=== PATIENT | male | born 1950 | race Caucasian/White ===

== ENCOUNTER 2021-10-23 05:08 | Observation (INO) ==
--- NOTE | 2021-10-09 13:16 | PAT Medication Instructions ---
Medication Instructions Date of Service October 09, 2021 Home Medications acetaminophen 500 mg tablet 500 mg PO Q6H PRN celecoxib 200 mg capsule (Celebrex) 200 mg PO QAM ASK your surgeon for instructions celecoxib 200 mg capsule (Celebrex) 200 mg PO QAM Take morning of surgery With a small sip of water, OTHERWISE NOTHING TO EAT OR DRINK AFTER MIDNIGHT: acetaminophen 500 mg tablet 500 mg PO Q6H PRN(okay to take up to 4 hours prior to surgery if needed) Take evening before surgery acetaminophen 500 mg tablet 500 mg PO Q6H PRN(if needed) Other Notes If you have any questions please call us at [phone] or [phone] or [phone] or [phone]
--- NOTE | 2021-10-14 11:40 | Anesthesiology Consultation ---
Date of Service October 14, 2021 Assessment & Plan (1) Encounter for pre-operative examination: - medical clearance 03/13/2021: "...has had numerous procedures with anesthesia, never any complications...proposed procedure of knee arthroplasty, along with appropriate anesthesia, would not pose above-average risk. No further investigation is warranted in my opinion...cleared for procedure..." - COVID screening: Per assessment on 10/14/2021: Travel screen negative, no known COVID-19 positive contacts or current COVID-19 related symptoms in past 2 weeks. Patient vaccinated. Surgeon arranging preop COVID testing, scheduled 10/21/2021. Awaiting results. Chart Review Chart Review: Acceptable Risk for Surgery and Patient seen in Pre Admission Testing Teaching & Discussion Pre-Anesthesia Teaching/Discussion Notes: Instructed NPO after midnight before surgery, except medications with 15 cc of water. Medication instructions provided according to the PAT guidelines. History Surgery Operation Date: 10/23/21 07:00 Proposed Procedures p Right Total Knee Arthroplasty - Burt Chamorro MD Height/Weight Height: 5 ft 8 in Weight: 76.1 kg Allergies Allergy/AdvReac Type Severity Reaction Status Date / Time tree and shrub pollen Allergy allergic Verified 10/14/21 11:55 rhinitis Medications Home Medications Medication Instructions Recorded Confirmed Last Taken acetaminophen 500 mg tablet 500 mg PO Q6H PRN 02/26/21 10/08/21 Unknown celecoxib 200 mg capsule (Celebrex) 200 mg PO QAM 02/26/21 10/08/21 Unknown Past Medical History Medical History (Updated 10/14/21 @ 11:55 by Kimber Guzman PA-C) Chronic obstructive pulmonary disease Mild - breathing stable and controlled, denies inhaler use High triglycerides Borderline CARTER (obstructive sleep apnea) Cannot tolerate device Osteoarthritis Polio Patient denies h/o stroke, seizures, heart attack, heart failure, DM, HTN, blood clots or blood transfusions. Exercise / Class Metabolic Activity II 4-5 Yardwork/Stairs/Walk up hill (denies CP or SOB with 1 FOS) Past Family History Family History Other Diabetes Heart disease Stroke Past Surgical History Surgical History History of foot surgery due to polio History of open reduction and internal fixation (ORIF) procedure left femur History of oral surgery 1984 jaw surgery pins due to farm accident No issues opening or closing mouth Hx of right knee surgery due to polio as child Hx of rotator cuff surgery right and left Past Anesthesia History No Hx of Anesthesia Complications and No Family Hx of Anesthesia Complications History of PONV No Hx of PONV and No Hx of Motion Sickness Social History Smoking Status: Never smoker Do You Dip or Chew Tobacco: Yes (advised) Hx Alcohol Use: Yes Alcohol type: beer alcohol intake frequency: a few times a month Hx Substance Use: No substance use type: does not use Review of Systems Patient denies chest pain, shortness of breath, dyspnea on exertion, fever, chills, cough, wheezing, or palpitations. Physical Exam Vital Signs Vitals BP 139/88 P 60 TEMP 98.1 SP02 95% on RA RESP 17 Physical Full cervical extension range of motion without pain TMD 3.5 finger breaths Mallampati Score 2, slightly limited mouth opening Dentition: intact, several missing teeth, repaired chipped front upper tooth; denies loose teeth, caps/crowns, implants or bridges Lungs: normal respiratory effort. Clear throughout to auscultation, no adventitious breath sounds Cardiac: regular rate and rhythm, no murmurs noted Carotid arteries: negative bruit bilat Lab Results Anesthesia Preop Results Results Anesthesia Widget: WBC 9.06 K/uL (4.8-10.8) 10/14/21 Hgb 15.7 g/dL (14.0-18.0) 10/14/21 Hct 45.7 % (42-52) 10/14/21 Plt 206 K/uL (130-400) 10/14/21 Na 137 mmol/L (136-145) 10/14/21 K 4.3 mmol/L (3.5-5.1) 10/14/21 Cl 106 mmol/L (98-107) 10/14/21 CO2 25 mmol/L (21-32) 10/14/21 BUN 22 mg/dl (6-23) 10/14/21 Creat 0.85 mg/dl (0.6-1.4) 10/14/21 Glucose Level 96 mg/dl (70-99(Fasting)) 10/14/21 PT 11.3 Seconds (9.0-12.0) 10/14/21 PTT 27.5 Seconds (21.0-31.0) 10/14/21 INR 1.1 (0.9-1.1) 10/14/21 Urine Color Yellow 10/14/21 Urine Appearance Clear (Clear) 10/14/21 Urine pH 5.0 (4.5-7.5) 10/14/21 Urine Specific [place] 1.017 (1.000-1.030) 10/14/21 Urine Protein Negative (Negative) 10/14/21 Urine Glucose (UA) Negative (Negative) 10/14/21 Urine Ketones Negative (Negative) 10/14/21 Urine Blood Negative (Negative) 10/14/21 Urine Nitrite Negative (Negative) 10/14/21 Urine Bilirubin Negative (Negative) 10/14/21 Urine Urobilinogen Negative (Negative) 10/14/21 Urine Leukocyte Esterase Negative (Negative) 10/14/21 Blood Type B Positive 10/14/21 Antibody Screen NEGATIVE 10/14/21 Testing Electrocardiogram Date: 03/07/21 Sinus bradycardia with occasional PVCs, rate 58 bpm Chest X-Ray Date: 03/07/21 FINDINGS: PA and lateral chest radiographs are obtained. No prior studies are available for comparison at the time of dictation. The cardiomediastinal yakov houette is unremarkable. The lungs appear hyperinflated. Nonspecific interstitial thickening is likely chronic. No airspace consolidation or pleural effusion is identified. Mild scarring/atelectasis is noted at the lung bases. There is no pneumothorax. The skeletal structures are osteopenic. The bony thorax appears intact. Postoperative change is noted in the left shoulder. IMPRESSION: No active disease in the chest.
--- NOTE | 2021-10-19 07:57 | History & Physical Report ---
Date of Service October 19, 2021 Assessment & Plan (1) Right knee DJD: Plan: Postoperative prescriptions for Percocet and Coumadin will be provided at discharge from the hospital. Anticipate discharge to home with home health services. For preoperative lab work, EKG and chest x-ray were ordered. He will see PAT today. Preoperative COVID nasal swab was also ordered today. He is aware of the COVID-19 risks associated with surgery. He is currently asymptomatic of any COVID-19 symptoms. PDMP was checked and there are no concerning findings. He already has a walker. Given his requirements on the left leg, bilateral platform attachments were ordered. Option of using a knee immobilizer on the right or left legs for ambulation was also discussed. He does have a brace at home. Call with any other concerns. He also met with telephonic case manager, nurse Mosqueda, to make arrangements for home health and PT. History of Present Illness Chief Complaint: Right knee pain Primary Care Provider: Bebe Tamez MD This 71-year-old male presents with his for his preoperative history and physical. He is scheduled to undergo a right knee total knee arthroplasty on 10/23/2021. He was previously scheduled for this same procedure on 04/03/2021. This was canceled due to the COVID pandemic and lack of bed space. He has had a longstanding history of right knee pain. He was inflicted with polio as a young child and has significant wasting and dysfunction of his left leg. Because of the leg length inequality, he had multiple right knee surgeries including epiphyseal stapling to try and control leg growth. At this point, he has end- stage arthritic changes in the right knee. Pain is worse with weightbearing. It is affecting his ADLs. He has a significant valgus deformity that causes him to walk abnormally. 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 He has no active quad function on the left. He uses his left arm to push his knee into extension and control it from buckling. No numbness or tingling. He elects to proceed with surgical intervention in hopes of improving his function and pain control. Preoperative imaging has been obtained. Allergies Allergy/AdvReac Type Severity Reaction Status Date / Time tree and shrub pollen Allergy allergic Verified 10/14/21 11:55 rhinitis Home Medications Medication Instructions Recorded Confirmed Type acetaminophen 500 mg tablet 500 mg PO Q6H PRN 02/26/21 10/08/21 History celecoxib 200 mg capsule (Celebrex) 200 mg PO QAM 02/26/21 10/08/21 History Past Med/Surg History Medical History (Updated 10/19/21 @ 07:54 by Perry Lynn PA-C) Chronic obstructive pulmonary disease Mild - breathing stable and controlled, denies inhaler use GERD (gastroesophageal reflux disease) High triglycerides Borderline CARTER (obstructive sleep apnea) Cannot tolerate device Osteoarthritis Polio Surgical History History of foot surgery due to polio History of open reduction and internal fixation (ORIF) procedure left femur History of oral surgery 1984 jaw surgery pins due to farm accident No issues opening or closing mouth Hx of right knee surgery due to polio as child Hx of rotator cuff surgery right and left Family History (Updated 10/19/21 @ 07:54 by Perry Lynn PA-C) Brother Deep vein thrombosis Other Diabetes Heart disease Stroke Social History (Updated 10/19/21 @ 07:53 by Perry Lynn PA-C) Smoking Status: Never smoker Tobacco Type: Smokeless Tobacco (Dip or Chew) Second Hand Exposure: No; Hx Alcohol Use: Yes Alcohol type: beer Hx Substance Use: No Preferred Language: Wolof Communication Ability: Effective Athletic Field Custodian Required: No Beliefs That Will Affect Care: None marital status: Current Living Situation: Spouse current occupational status: employed current occupation: arreola/golf course Feels Safe at Home: Yes Assistive Devices: Glasses Review of Systems Review of Systems: All systems reviewed & are unremarkable except as noted in HPI & below A total of 10 systems were reviewed. Physical Exam Physical Exam: Vitals: Height 172.7 cm, weight 75.5 kg, BMI 25.3, temperature 36.5, BP 120/74, respirations 16, O2 sat 96% on room air. General: Well-developed, well-nourished, elderly white male in no acute distress. Sitting in a chair. Alert and oriented. Skin: Warm and dry with good turgor. No rashes or lesions. No ecchymosis or erythema. HEENT: Normocephalic, atraumatic. Eyes: PERRLA, EOMI. Oropharynx and nares exam deferred due to COVID precautions. Heart: RRR. No MGR. Lungs: Clear to auscultation bilaterally. No crackles, rhonchi or wheezing. Good air movement. Abdomen: Bowel sounds present x4, soft and nontender. No organomegaly. No masses. Musculoskeletal: Right knee evaluation reveals an obvious valgus deformity. No intra-articular effusion today. There is thickening around the knee. No defect in the patellar tendon or quadriceps tendon. There is focal pain with palpation over the lateral joint line. There is also peripatellar discomfort. No medial joint line discomfort with palpation today. Stable collateral ligaments. He lacks a few degrees of terminal extension. Flexion to 100 degrees. Strength is 5/5 with fair quad tone. He has no active quad function on the left leg. He ambulates with an antalgic gait, requiring pressure on the left thigh to extend the left knee. Neurologic: Gross sensation is intact across all aspects of the right leg by soft touch. Peripheral pulses are 2+. There is some decreased subjective sensation on the lower left leg as his baseline. Results & Data Results & Data ([facility]) Diagnostic Findings Radiographic imaging obtained today shows end-stage DJD of the right knee. He has [id number] in the lateral compartment. There is a large loose body or osteophyte present posteriorly. Severe valgus deformity of the right knee. Code Status & VTE Plan VTE Prophylaxis Plan VTE Prophylaxis will be ordered: Yes
[2021-10-23] MEDS ORDERED: ceFAZolin 2000MG 2,000 MG/15 ML SYR IV SCH (06:00)
[2021-10-23] MEDS ORDERED: ROPIVACAINE 0.5% HCL/PF 150 MG, BUPIVACAINE 0.75% MPF 20 ML, EPINEPHrine 0.15 MG, Ketor... INFIL SCH (06:00)
[2021-10-23] MEDS ORDERED: LR 60ML/HR IV SCH (06:00)
[2021-10-23] MEDS ORDERED: TRANEXAMIC ACID 1,000 MG **IV Pre-op IV SCH (06:00)
[2021-10-23] MEDS ORDERED: LR 500ML BOLUS, THEN 15ML/HR IV SCH (06:00)
--- NOTE | 2021-10-23 06:25 | History & Physical Bridge Note ---
Date of Service October 23, 2021 History & Physical Bridge Note I have examined the patient, reviewed the History & Physical and in the interval since the performance of the History & Physical I have noted the following changes of clinical significance:consent obtained/site verified/covid screen negative.old medial incision will be used to minimize risk of skin issues.made him aware of that risk. no changes noted
[2021-10-23] MEDS ORDERED: BUPIVACAINE 0.5 % 5 MG/1 ML PF 10ML VIAL ONE ×2 (06:28)
[2021-10-23] MEDS ORDERED: ORTHO JOINT ANESTHETIC ONE (06:32)
[2021-10-23] MEDS ORDERED: PROPOFOL IV EMULSION 10 MG/ML 20 ML VIAL IV ONE ×3 (06:36→08:15)
[2021-10-23] MEDS ORDERED: MIDAZOLAM HCL 1 MG/ML 2ML VIAL ONE (06:36)
[2021-10-23] MEDS ORDERED: fentaNYL citrate 100 MCG/2 ML VIAL ONE (06:36)
[2021-10-23] MEDS ORDERED: LIDOCAINE 2% 2 ML VIAL/AMP(20MG/ML) INFIL ONE (06:36)
[2021-10-23] MEDS ORDERED: DEXAMETHASONE SOD INJ 4 MG/ML VIAL ONE (06:36)
[2021-10-23] MEDS ORDERED: HYDROmorphone INJ 2 MG/ML SYR/VIAL IV PRN (06:48)
[2021-10-23] MEDS ORDERED: fentaNYL citrate 100 MCG/2 ML VIAL IV PRN (06:48)
[2021-10-23] MEDS ORDERED: ePHEDrine sulfate 50 MG/ML AMP IV PRN (06:48)
[2021-10-23] MEDS ORDERED: ATROPINE SULFATE 0.1 MG/ML 10ML SYR IV PRN (06:48)
[2021-10-23] MEDS ORDERED: ONDANSETRON INJ 2 MG/ML 2 ML VIAL IV PRN ×2 (06:48→10:40)
[2021-10-23] MEDS ORDERED: KETAMINE 50 MG/5 ML SYRINGE ONE (07:21)
--- NOTE | 2021-10-23 08:48 | Post Operative Brief Note ---
Immediate Post Op Note v1 Date of Surgery October 23, 2021 Pre & Post Diagnosis Operation Date: 10/23/21 07:00 Pre-Op Diagnosis: Right Knee Degenerative Joint Disease Post-Op Diagnosis: Right Knee Degenerative Joint Disease I identified the patient and participated in the time-out.: Yes Procedure Operation Date: 10/23/21 07:00 Actual Procedures p Right Total Knee Arthroplasty(Right) - Burt Chamorro MD Surgeon Burt Chamorro MD Loom Starter Meeta/Leah/Merlin Estimated Blood Loss 25 Findings Consistent with Post-Op Diagnosis
--- NOTE | 2021-10-23 09:00 | Operative Report ---
Post Operative Report Pre & Post Diagnosis Operation Date: 10/23/21 07:00 Pre-Op Diagnosis: Right Knee Degenerative Joint Disease Post-Op Diagnosis: Right Knee Degenerative Joint Disease I identified the patient and participated in the time-out.: Yes Procedure Operation Date: 10/23/21 07:00 Actual Procedures p Right Total Knee Arthroplasty(Right) - Burt Chamorro MD Surgeon DANICA Chamorro MD Line Supply Meeta/Leah/Merlin Estimated Blood Loss 25 Findings Consistent with Post-Op Diagnosis see operative report Specimens see operative report Drains none Complications none Disposition Accompanied Patient To Recovery: Yes Indications This 71-year-old male presented to the office with complaints of persisting right knee pain. He had tried conservative care measures without improvement. He elected to proceed with surgical intervention after being educated about potential risks and outcomes. Preoperative imaging was obtained. Surgery was initially delayed due to bed availability in the hospital due to the Covid surge. He is now ready to proceed. Description of Procedure Patient was administered a spinal anesthetic and then taken to the operating room where he was given sedation. He was prepped and draped in the usual sterile fashion. Please see Dr. Chamorro's operative report for specifics of the procedure. I was present for the entire case from initial patient positioning through final wound closure. Assistance was provided in tissue retraction, hemostasis, trial implant placement, final implant placement, and final wound closure. Patient was taken to the recovery room in satisfactory condition. I attest to the content of the Intraoperative Record and any orders documented therein. Any exceptions are noted below.
--- NOTE | 2021-10-23 09:01 | Operative Report ---
Post Operative Report Pre & Post Diagnosis Operation Date: 10/23/21 07:00 Pre-Op Diagnosis: Right Knee Degenerative Joint Disease Post-Op Diagnosis: Right Knee Degenerative Joint Disease I identified the patient and participated in the time-out.: Yes Procedure Operation Date: 10/23/21 07:00 Actual Procedures p Right Total Knee Arthroplasty(Right) - Burt Chamorro MD Surgeon Colt Tim MD Manager Trade Metea/Leah/Merlin Estimated Blood Loss 25 Findings Consistent with Post-Op Diagnosis Consistent with post diagnosis. Specimens No specimens Description of Procedure I participated in prepping dressing and assisted Dr. Chamorro during the procedure. Please see Dr. Chamorro note. I attest to the content of the Intraoperative Record and any orders documented therein. Any exceptions are noted below. Supervising Physician Co-Signing Physician Notes Dr. Chamorro
--- NOTE | 2021-10-23 09:27 | XRay Report ---
XR knee RT 1 or 2V routine CLINICAL HISTORY: S/P R TKA. COMPARISON STUDY: 10/14/2021 TECHNIQUE: 2 right knee views FINDINGS: The patient is status post total knee replacement. The prosthetic components are in anatomi c alignment with no acute abnormality seen. Air is present within the soft tissues from the procedure . Skin mayelin are seen anteriorly. IMPRESSION: 1. Status post total knee replacement ACT 112: Negative or not required by law. Electronically signed by: Alexis Forde M.D. 10/23/2021 9:26 AM
--- NOTE | 2021-10-23 09:42 | Anesthesiology Progress Note ---
Date of Service October 23, 2021 Anesthesia Post Procedure Vital Signs Vital Signs: Temp Pulse Resp BP Pulse Ox 10/23/21 09:40 54 L 16 129/88 96 10/23/21 09:30 52 L 15 140/98 99 10/23/21 09:20 56 L 13 143/63 H 99 10/23/21 09:10 52 L 17 140/94 99 10/23/21 09:00 36.3 C L 59 L 14 129/89 97 10/23/21 05:56 36.8 C 55 L 18 145/85 H 96 Transfer of Care Handoff Completed per policy Notes Mental Status: alert / awake / arousable and participated in evaluation Patient Amnestic to Procedure: Yes Nausea / Vomiting: adequately controlled Pain: adequately controlled Airway Patency, RR, SpO2: stable & adequate BP & HR: stable & adequate Hydration State: stable & adequate Anesthetic Complications: no major complications apparent and Pt Satisfied with anesthetic care
--- NOTE | 2021-10-23 09:42 | Progress Notes ---
DATE OF SERVICE: 10/23/2021. SUBJECTIVE: Postop check status post right total knee replacement. The patient is resting comfortably in bed. Denies chest pain, shortness of breath, fever, chills, nausea, vomiting, or headache. OBJECTIVE: VITAL SIGNS: Stable. He is afebrile. Neurovascular check is limited by spinal. Wound dressing clean, dry and intact. X-rays look excellent. ASSESSMENT: Doing well status post right total knee replacement. Continue with care pathway. Job ID: [id number] [facility]
--- NOTE | 2021-10-23 09:45 | Operative Report (OR) ---
DATE OF PROCEDURE: 10/23/2021 SURGEON: Burt Chamorro MD. FISHING TOOL TECHNICIAN OIL WELL: Colt Tim MD. SECOND FISHING TOOL TECHNICIAN OIL WELL: Perry Lynn PA-C and med student Kaleb. PREOPERATIVE DIAGNOSIS: Osteoarthritis, tricompartmental with valgus deformity, flexion contracture post-polio, right knee. POSTOPERATIVE DIAGNOSIS: Osteoarthritis, tricompartmental with valgus deformity, flexion contracture post-polio, right knee. OPERATION PERFORMED: Cemented right total knee replacement. SUMMARY OF IMPLANTS: Size right 4 femur posterior cruciate substituting, size 4 mobile bearing tray, size 41 patella, size 4 x 10 posterior cruciate substituting insert, oval dome 3-peg patella, size 41, two bags of Palacos G cement J and J implants. CRYSTALLOID: Per anesthesia. ESTIMATED BLOOD LOSS: 25 mL post-tourniquet release. PERIOPERATIVE SITUATION: Medically cleared male with intractable knee pain, has deformity based on multiple procedures secondary to polio when he was a child and has significant valgus and flexion deformity, wished to proceed with surgical treatment. Options were discussed with him in detail. He has multiple incisions about the knee. Informed him of skin slough, we will use his medial incisions slightly extended, also informed of potential peroneal nerve palsy based on tension and stretch. DESCRIPTION OF PROCEDURE: The patient was appropriately identified, site verified, consent verified. Antibiotics were confirmed as being given. The right lower extremity was prepped and draped in the usual routine fashion. Tourniquet was inflated to 300 mmHg after exsanguination of the limb with a rubber Esmarch bandage for a total of 63 minutes. An old medial incision was utilized and extended proximally and distally about 3 cm in each direction. Full thickness flaps were raised. Minimal dissection was carried over the patella. Parapatellar trialing was performed. One could see that the extensor mechanism was not deformed as normally would be. It was very thin medially and proximally. Once the parapatellar arthrotomy was performed, one could see the extensive osteophytes, synovitis and degenerative disease, particularly in the lateral compartment and the patellofemoral compartment. All osteophytes were resected. Synovectomy completed. Patella was appropriately released. The knee flexed without difficulty. Excellent exposure obtained. Distal femur then entered. Cruciates resected. Tibia was subluxated, menisci resected. Significant grade 4 deformity on the tibia with a significant bone loss there. The retractors were then placed well. The distal femoral cut was then made 14 mm, the proximal tibia cut then made 4 mm off the high side. This required one revision. The extension gap was excellent. The flexion gap was excellent. Both were sized to size 4. The femur was actually between a 5 and 4, was measured 5, cut 4 with care taken to externally rotate the implant appropriately based on potential deformity from his polio. This was done well and the transepicondylar axis was reproduced. Anterior, posterior condylar and chamfer cuts then made. The flexion gap and extension gap again were excellent. The box cut was then made and a size 4 fit well. Tibia was then subluxated, broached and reamed to a size 4. Care was taken to make sure the posterior slope was appropriate. The 10 spacer fit well. The patella tracked well. The patella was quite large. It was resected, leaving about 16-17 mm and then the 41 patella button placed. It tracked well. Orthomix was then injected all about the knee including posterior capsule. Implants were removed. The wound irrigated with Betadine Pulsavac, the permanent cemented in position -- tibia, femur, and patella in that order. At 12 minutes, the tourniquet deflated; at 14 minutes, the knee flexed. Minor cement removal required. The wound irrigated. The temporary spacer removed, the wound irrigated one final time with Betadine and the permanent spacer seated. The knee reduced and then closed at 40 degrees of flexion with #2 Vicryl, 2-0 Vicryl and stainless steel clips. Appropriate dressing applied. The patient was transferred to recovery room in satisfactory condition, having tolerated the procedure well. Job ID: [id number] [facility]
--- NOTE | 2021-10-23 09:49 | Discharge Summary (DS) ---
DATE OF ADMISSION: 10/23/2021. DATE OF SURGERY: 10/24/2021. CHIEF COMPLAINT: Right knee pain. HISTORY OF PRESENT ILLNESS: The patient underwent elective right total knee replacement for postpoli o deformity, tricompartmental osteoarthritis with valgus and flexion deformity of his right knee. Hospital course to date has been uneventful. He denies any chest pain, shortness of breath, fever, c hills, nausea, vomiting or headache. ALLERGIES: INCLUDE TREE AND TRUNK POLLEN. HOME MEDICATIONS: Include acetaminophen and Celebrex. PAST MEDICAL/PAST SURGICAL HISTORY: Remarkable for chronic obstructive pulmonary disease, GERD, bord pamela hyperlipidemia, sleep apnea, osteoarthritis, history of polio. SOCIAL HISTORY: Remarkable for multiple surgeries related to polio deformity, right knee surgery, mu ltiple right shoulder and left shoulder surgeries for rotator cuff disease. FAMILY HISTORY: Remarkable for DVT in a brother; diabetes, heart disease, stroke, in other family me mbers. SOCIAL HISTORY: Reveals he does not smoke, does not drink. He is . Does use smokeless [employer]. 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 REVIEW OF SYSTEMS: Again revealed no issues. ASSESSMENT: Overall doing well status post right total knee replacement. Continue with care pathway . Discharge home tomorrow if he does well overnight. Job ID: [id number]
[2021-10-23] MEDS ORDERED: HYDROmorphone INJ 0.5 MG/0.5 ML SYR IV PRN (10:40)
[2021-10-23] MEDS ORDERED: TAMSULOSIN HCL 0.4 MG CAP PO PRN (10:40)
[2021-10-23] MEDS ORDERED: SODIUM CHLORIDE 0.9% 1000ML 1,000 ML IV SCH (10:40)
[2021-10-23] MEDS ORDERED: diphenhydrAMINE 50 MG/ML VIAL IV PRN (10:40)
[2021-10-23] MEDS ORDERED: NALOXONE HCL 0.4 MG/1 ML VIAL/CARP IV PRN (10:40)
[2021-10-23] MEDS ORDERED: bisacodyL 10 MG SUPP PR PRN (10:40)
[2021-10-23] MEDS ORDERED: ALUMINUM/MAGNESIUM SUSP 30 ML UDC PO PRN (10:40)
[2021-10-23] MEDS ORDERED: METOCLOPRAMIDE HCL INJ 5 MG/ML 2 ML VIAL IV PRN (10:40)
[2021-10-23] MEDS ORDERED: MAGNESIUM HYDROXIDE SUSP 30 ML UDC PO PRN (10:40)
--- NOTE | 2021-10-23 11:47 | Progress Notes ---
DATE OF SERVICE: 10/23/2021 Follow up postoperative on the floor. He is eating and drinking well. Saline lock his IV fluid. He has active extension and flexion of his toes and ankle. Of note is that he has had polio and has bi lateral lower extremity weakness, will need to have an adaptive walker with platform. Knee immobiliz er to protect his wound. Job ID: [id number]
[2021-10-23] MEDS: KETOROLAC TROMETHAMINE 15 MG/ML VIAL IV SCH ×3 (12:10→23:53)
[2021-10-23] MEDS ORDERED: ORTHO WARFARIN NOMOGRAM SCH (14:00)
[2021-10-23] MEDS: ACETAMINOPHEN 500 MG TAB PO SCH ×2 (14:25→22:32)
[2021-10-23] MEDS: ceFAZolin 2000MG 2,000 MG/15 ML SYR IV SCH ×2 (15:27→23:53)
[2021-10-23] MEDS ORDERED: TRANEXAMIC ACID / 0.7% NACL 1,000 MG/100 ML BAG IV SCH (15:30)
[2021-10-23] MEDS ORDERED: WARFARIN SOD 5 MG TAB PO ONE (16:00)
[2021-10-23] MEDS: oxyCODONE HCL IR 5 MG TAB (IMMEDIATE RELEASE) PO PRN ×2 (16:02→22:29)
[2021-10-23] MEDS: FERROUS GLUCONATE 324 MG TAB PO SCH (17:35)
[2021-10-23] MEDS: ASCORBIC ACID 500 MG TAB PO SCH (17:35)
[2021-10-23] MEDS ORDERED: SENNA 8.6 MG TAB PO SCH (21:00)
[2021-10-23] MEDS: DOCUSATE SODIUM 100 MG CAP PO SCH (22:31)
[2021-10-24] MEDS: ACETAMINOPHEN 500 MG TAB PO SCH ×2 (05:03→13:37)
[2021-10-24] MEDS: KETOROLAC TROMETHAMINE 15 MG/ML VIAL IV SCH (05:03)
[2021-10-24 06:59] LABS: Hematocrit (blood only) 31.9 % (42-52); Hemoglobin 10.9 g/dL (14.0-18.0); Mean Corpuscular Hemoglobin 31.3 pg (25-34); Mean Corpuscular Hgb Conc 34.2 g/dL (32-36); Mean Corpuscular Volume 91.7 fL (80-100); Mean Platelet Volume 9.3 fL (7.4-10.4); Platelet Count 167 K/uL (130-400); RDW Coefficient of Variation 13.2 % (11.5-14.5); RDW Standard Deviation 44.1 fL (36.4-46.3); Red Blood Count 3.48 M/uL (4.7-6.1); White Blood Count 16.32 K/uL (4.8-10.8)
[2021-10-24 07:25] LABS: INR 1.1 (0.9-1.1); Prothrombin Time 11.9 Seconds (9.0-12.0)
[2021-10-24 07:31] LABS: BUN Creatinine Ratio 23.7 (10-20); Calcium 8.6 mg/dl (8.5-10.1); Creatinine Clr Calc Pharmacy 69.5 ml/min; Est GFR (African American) 94.7 ml/min; Est GFR (Non-African American) 81.7 ml/min; Potassium 4.5 mmol/L (3.5-5.1)
[2021-10-24] MEDS ORDERED: dexAMETHasone 10 MG in SYRINGE 0 ML IV SCH (08:00)
--- NOTE | 2021-10-24 08:54 | Progress Notes ---
SUBJECTIVE: Postop check status post right total knee replacement. The patient is doing well and has no major issues with pain. He denies any chest pain, shortness of breath, fever, chills, nausea, vomiting or headache. VITAL SIGNS: Stable. He is afebrile. Wound dressing clean, dry and intact. EXTREMITIES: Calves nontender. Has intact dorsiflexion and plantarflexion and ability to raise his right leg. ASSESSMENT AND PLAN: Doing well status post right knee replacement. He needs a platform walker base d on his polio. He was instructed and reinforced to continue to use his knee immobilizer for the nex t 24-48 hours to help with the stability of his leg. He will follow up with us in 2 weeks. DVT prop hylaxis in place. Job ID: [id number]
[2021-10-24] MEDS ORDERED: MULTIVITAMIN TAB PO SCH (09:00)
[2021-10-24] MEDS: FERROUS GLUCONATE 324 MG TAB PO SCH (09:17)
[2021-10-24] MEDS: ASCORBIC ACID 500 MG TAB PO SCH (09:17)
[2021-10-24] MEDS: DOCUSATE SODIUM 100 MG CAP PO SCH (09:17)
[2021-10-24] MEDS: oxyCODONE HCL IR 5 MG TAB (IMMEDIATE RELEASE) PO PRN ×2 (09:22→13:36)
--- NOTE | 2021-10-24 09:43 | Orthopedic Progress Note ---
Date of Service October 24, 2021 Assessment & Plan (1) Right knee DJD: Plan: Pt deemed orthopedically and mediaclly stable for d/c Dressing taken down and changed today with 4x4s, abd, kerlix and KEHINDE stocking. Pt was instructed to leave on until Thursday. Weight bearing as tolerated with walker to assist in ambulation Knee immoblizer when OOB until Thursday Home health/PT x 2 weeks Frequently ice and elevate You may shower on Post op Day 3. Keep dressing clean and dry. No baths, hot tubs or swimming pools. Keep incision clean and dry. DVT prophylaxis: Coumadin on discharge Pain control: percocet on discharge Stool softener for constipation Follow up as scheduled in 2 weeks with [facility]. Please call out office sooner if you have any questions or concerns Admission and Anticipated Discharge Date Admission Date: October 23, 2021 Subjective Pt was seen and examined bedside. POD #1 s/p total knee arthroplasty. Pt was admitted last night for observation. No major events over night. Vitals are stable. Labs unremarkable. X-rays show normal post operative changed. Pt reports they are doing well and pain is controlled. They are tolerating PO intake and voiding adequate amounts. Working well with PT/OT. Pt denies F/C, N/V/D, SOB, CP. Pt deemed medically stable and ready for discharge. Physical Exam Physical Exam: General: Pt laying in hospital bed AA&O, in NAD, calm and cooperative during exam Lower Extremity: Dressing in tact and mildly saturated. Incisions clean, dry and with minimal drainage and no surrounding erythema, warmth or purulent drainage. Pt has full ROM of ankle and all 5 digits. Pt has 5/5 strength with resisted DF/PF. SLR in tact. Calf supple and non tender. NVI with sensation to light touch distally and good distal pulses present. Lower extremity noted to have good color and temperature with no signs of vascular or lymphatic insufficiency. Results & Data ([facility]) Vital Signs (Past 12 Hours) Vital Signs Temp Pulse Resp BP Pulse Ox 10/24/21 07:07 36.5 C 60 18 116/68 97 10/24/21 03:10 37.0 C 48 L 16 99/59 L 96 10/23/21 22:27 37.1 C 63 18 109/62 96 Laboratory Results 04/10/24/21 10/24/21 Range/Units 06:43 06:43 06:43 WBC 16.32 H (4.8-10.8) K/uL RBC 3.48 L (4.7-6.1) M/uL Hgb 10.9 L (14.0-18.0) g/dL Hct 31.9 L (42-52) % MCV 91.7 (80-100) fL MCH 31.3 (25-34) pg MCHC 34.2 (32-36) g/dL RDW Std Deviation 44.1 (36.4-46.3) fL RDW Coeff of Yasir 13.2 (11.5-14.5) % Plt Count 167 (130-400) K/uL MPV 9.3 (7.4-10.4) fL PT 11.9 (9.0-12.0) Seconds INR 1.1 (0.9-1.1) Sodium 136 (136-145) mmol/L Potassium 4.5 (3.5-5.1) mmol/L Chloride 106 (98-107) mmol/L Carbon Dioxide 26 (21-32) mmol/L Anion Gap 4 (3-11) BUN 22 (6-23) mg/dl Creatinine 0.93 (0.6-1.4) mg/dl Est Cr Clr Drug Dosing 69.5 ml/min Est GFR ( Amer) 94.7 ml/min Est GFR (Non-Af Amer) 81.7 ml/min BUN/Creatinine Ratio 23.7 H (10-20) Glucose 124 H (70-99(Fasting)) mg/dl Calcium 8.6 (8.5-10.1) mg/dl
== END 2021-10-24 13:52 | disposition home health service (06) ==
LOC: 3E 05:08 → ASU 05:08
DX: M21.061 Valgus deformity, not elsewhere classified, right knee; F17.220 Nicotine dependence, chewing tobacco, uncomplicated; Z79.899 Other long term (current) drug therapy; Z86.12 Personal history of poliomyelitis; M17.11 Unilateral primary osteoarthritis, right knee; M24.561 Contracture, right knee